=== PATIENT | female | born 1930 | race Caucasian/White ===

== ENCOUNTER → 2016-12-17 | Outpatient (CLI) | payer MEDICARE, BC ==
--- NOTE | ~2016-12-17 | CT2 ---
[facility] A Service of [facility] RADIOLOGY TEXT RESULTS PATIENT: MICHELLE MIKE LOCATION: [facility] : 34 UNIT #: [id number] AGE: [address]: WALTER MORALES APRN SEX: F ORDER DR: [id number] [facility] [address] [place], [place] [address] [id number] O MR#: [id number] Acc #: [id number] NAME: MICHELLE MIKE : 1930 SEX: F STUDY DATE/TIME: 12/17/2016 13:03 UNIT: [facility] ROOM: STUDY DESCRIPTION: CT Abd and Pelv W Cont Attending Physician: Renuak Morales A.P.R.N. Referring Physician: Renuka Morales A.P.R.N. Ordering Physician: Renuka Morales A.P.R.N. Primary Care Physician: Xuan Walker Aprn MEDICAL IMAGING REPORT This report is preliminary unless electronic signature is present REVISED REPORT EXAM CT abdomen and pelvis with contrast HISTORY Abdominal cramping, left lower quadrant pain, bloody stools starting yesterday morning COMPARISON 10/08/2012 TECHNIQUE The patient was given 100 mL of Isovue 370 and oral contrast and axial 5 mm images were obtained through the abdomen and pelvis. Sagittal and coronal reconstructions were generated. This CT exam was performed with one or more of the following radiation dose reduction techniques: automatic exposure control, adjustment of mA and/or kV according to patient size, and iterative reconstruction. FINDINGS The lung bases are clear. The patient's distal esophagus has a large right-sided diverticulum that has been demonstrated on an esophagram before; it is up to 4.4 cm in diameter. The liver, gallbladder, spleen, pancreas, adrenal glands and kidneys are normal in appearance. The aorta is normal in size and no adenopathy. The bowel is normal except for some sigmoid diverticula. The uterus has been removed. There are no adnexal masses. The bladder is normal. The bones show mild degenerative changes. IMPRESSION 1. Large right-sided esophageal diverticulum, which has been seen previously on esophagram and CT scans. [facility]. [facility] A Service of [facility] & [facility] RADIOLOGY TEXT RESULTS PATIENT: MICHELLE MIKE LOCATION: [facility] : 34 UNIT #: [id number] AGE: [address]: WALTER MORALES RECEIVING CLERK SEX: F ORDER DR: 2. Prior hysterectomy. 3. 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 4. Sigmoid diverticulosis. 5. Otherwise, normal. *ORDERING PHYSICIAN MODIFIED. Dictated by... Franklin Porter M.D. THIS IS AN ELECTRONICALLY VERIFIED REPORT Franklin Porter M.D. at 12/19/2016 6:04 AM FEL/to TD: 12/17/2016 20:22 JOB #: [id number] CC: [email or web address] Please Delete MEDICAL IMAGING REPORT Page 1 of 1 COPY
[2016-12-17 13:56] LABS: POC - CREATININE 0.61 mg/dL (0.44-1.03); POC - GFR >60.0 mL/min (>60)
== END | disposition home or self-care (01) ==
LOC: CCAT 10:52
PROVIDERS: Nurse Practitioner Family
DX: K92.1 Melena (principal); K22.5 Diverticulum of esophagus, acquired; M47.896 Other spondylosis, lumbar region; K57.30 Diverticulosis of large intestine without perforation or abscess without bleeding; Z90.710 Acquired absence of both cervix and uterus
CPT/HCPCS: 74177; 82565; Q9967